=== PATIENT | female | born 1970 | race Hispanic/Latino ===

== ENCOUNTER → 2021-08-22 | Outpatient (CLI) | payer SELFPAY | END | disposition home or self-care (01) | LOC: OR 05:22 → LAB 05:22 → EDSTATUS 09:30 | PROVIDERS: ATTEND Surgery | DX: K81.1 Chronic cholecystitis (principal); Z20.822 Contact with and (suspected) exposure to COVID-19; Z53.8 Procedure and treatment not carried out for other reasons | CPT/HCPCS: 93005; J0690; U0002 ==